=== PATIENT | female | born 1975 | race Caucasian/White ===

== ENCOUNTER 2021-06-07 11:35 | Emergency (ER) | payer OTHER ==
[~2021-06-07] VITALS: Ht 157.5 cm; Wt 63.5 kg
[2021-06-07] MEDS ORDERED: NEURONTIN800 MG PO (11:51)
[2021-06-07] MEDS ORDERED: CLONAZEPAM2 M1 PO (11:52)
[2021-06-07] MEDS ORDERED: SULINDAC150 MG PO (11:52)
[2021-06-07] MEDS ORDERED: [UNRECOGNIZED DRUG - OTHER] (11:53)
[2021-06-07] MEDS ORDERED: ZITHROMAX500 MG PO (14:37)
== END 2021-06-07 14:43 | disposition home or self-care (01) ==
LOC: ER 11:35
DX: B34.9 Viral infection, unspecified (principal); Z20.822 Contact with and (suspected) exposure to COVID-19

== ENCOUNTER 2021-10-17 16:10 | Emergency (ER) | payer OTHER ==
[~2021-10-17] VITALS: Ht 157.5 cm; Wt 88.5 kg
[~2021-10-17 16:10] MED LIST: CLONAZEPAM2 M1 PO; NEURONTIN800 MG PO; SULINDAC150 MG PO; ZITHROMAX500 MG PO; [UNRECOGNIZED DRUG - OTHER]
[2021-10-17] MEDS ORDERED: RESTORIL30 M1 PO (16:37)
[2021-10-17] MEDS ORDERED: BENZONATATE200 M1 PO (19:34)
[2021-10-17] MEDS ORDERED: ZITHROMAX500 MG PO (19:37)
== END 2021-10-17 19:51 | disposition home or self-care (01) ==
LOC: ER 16:10
DX: B34.9 Viral infection, unspecified (principal); Z20.822 Contact with and (suspected) exposure to COVID-19

== ENCOUNTER 2021-10-19 19:51 | Emergency (ER) | payer OTHER ==
[~2021-10-19] VITALS: Ht 157.5 cm; Wt 88.5 kg
[~2021-10-19 19:51] MED LIST changes: +BENZONATATE200 M1 PO; +RESTORIL30 M1 PO
== END 2021-10-19 23:34 | disposition home or self-care (01) ==
LOC: ER 19:51
DX: U07.1 COVID-19 (principal); J45.909 Unspecified asthma, uncomplicated

== ENCOUNTER 2021-10-23 09:10 | Outpatient (CLI) | payer OTHER | END 2021-10-23 10:03 | disposition home or self-care (01) | LOC: ASH CLINIC 09:10 | PROVIDERS: ATTEND General Practice | DX: U07.1 COVID-19 (principal) ==

== ENCOUNTER 2022-09-06 15:25 | Emergency (ER) | payer OTHER ==
[~2022-09-06] VITALS: Ht 162.6 cm; Wt 75.7 kg
== END 2022-09-06 18:06 | disposition home or self-care (01) ==
LOC: ER 15:25
DX: R53.81 Other malaise (principal); J02.9 Acute pharyngitis, unspecified; J10.1 Influenza due to other identified influenza virus with other respiratory manifestations; R51.9 Headache, unspecified

== ENCOUNTER 2023-03-24 19:10 | Emergency (ER) | payer OTHER ==
[~2023-03-24] VITALS: Ht 162.6 cm
[2023-03-24 20:50] LABS: HEMATOCRIT 40.6 % (36.0-45.00); HEMOGLOBIN 13.6 g/dL (12.0-15.00); MEAN CELL VOLUME 91.6 fL (80.00-100.00); MEAN CORPUSCULAR HEMOGLOBIN 30.6 pg (27.00-32.0); MEAN CORPUSCULAR HGB CONC 33.4 g/dl (32.0-36.0); PLATELET COUNT 229 K/uL (150-450); RED BLOOD COUNT 4.44 M/uL (4.00-6.00); RED CELL DISTRIBUTION WIDTH 13.1 % (11.5-14.5)
[2023-03-24 21:03] LABS: CALCIUM 9.4 mg/dL (8.5-10.1); CREATININE SERUM 0.68 mg/dL (0.55-1.02); GFR 93.57; POTASSIUM 3.79 mEq/L (3.5-5.1)
== END 2023-03-24 22:23 | disposition home or self-care (01) ==
LOC: ER 19:10
PROVIDERS: General Practice
DX: B34.9 Viral infection, unspecified (principal); Z20.822 Contact with and (suspected) exposure to COVID-19

== ENCOUNTER 2024-09-03 10:04 | Emergency (ER) | payer OTHER ==
[~2024-09-03] VITALS: Ht 157.5 cm; Wt 82.1 kg
[2024-09-03] MEDS ORDERED: BUTALB/ACETAMINOPHEN/CAFFEINE 1 TAB TABLET PO ONE ×2 (12:15→13:16)
[2024-09-03] MEDS ORDERED: VANCOMYCIN HCL 1,000 MG VIAL IV ONE (12:15)
[2024-09-03] MEDS ORDERED: FAMOtidine 10 MG/ML (4ML VIAL) IV ONE (12:15)
[2024-09-03] MEDS ORDERED: KETOROLAC TROMETHAMINE 30 MG VIAL IV ONE (12:15)
[2024-09-03] MEDS ORDERED: ONDANSETRON HCL 2 MG/ML VIAL IV ONE (12:15)
[2024-09-03] MEDS ORDERED: ONDANSETRON HCL 2 MG/ML VIAL ONE (13:16)
[2024-09-03] MEDS ORDERED: KETOROLAC TROMETHAMINE 30 MG VIAL ONE (13:16)
[2024-09-03] MEDS ORDERED: FAMOTIDINE/PF 20 MG/2 ML VIAL ONE (13:17)
[2024-09-03] MEDS ORDERED: VANCOMYCIN HCL 1,000 MG VIAL ONE (13:17)
[2024-09-03 13:58] LABS: HEMATOCRIT 42.7 % (36.0-45.00); HEMOGLOBIN 14.2 g/dL (12.0-15.00); MEAN CELL VOLUME 91.7 fL (80.00-100.00); MEAN CORPUSCULAR HEMOGLOBIN 30.4 pg (27.00-32.0); MEAN CORPUSCULAR HGB CONC 33.2 g/dl (32.0-36.0); PLATELET COUNT 256 K/uL (150-450); RED BLOOD COUNT 4.66 M/uL (4.00-6.00)
[2024-09-03 14:00] LABS: ERYTHROCYTE SEDIMENTATION RATE 25 mm/hr
[2024-09-03 14:16] LABS: INR 1.03; PARTIAL THROMBOPLASTIN TIME 28.4 SECONDS (22.0-34.0); PROTHROMBIN TIME 11.2 SECONDS (9.0-11.5)
[2024-09-03] MEDS ORDERED: NEURONTIN300 MG PO (15:52)
[2024-09-03 16:08] LABS: ALBUMIN 4.1 gm/dL (3.4-5.0); BILIRUBIN TOTAL 0.43 mg/dL (0.3-1.2); CALCIUM 9.6 mg/dL (8.5-10.1); CREATININE SERUM 0.64 mg/dL (0.55-1.02); GFR 99.47; POTASSIUM 4.08 mEq/L (3.5-5.1); TOTAL PROTEIN 8.1 gm/dL (6.4-8.2)
== END 2024-09-03 16:39 | disposition home or self-care (01) ==
LOC: ER 10:05
PROVIDERS: Emergency Medicine; General Practice
DX: G50.0 Trigeminal neuralgia (principal)

== ENCOUNTER → 2025-05-16 | Emergency (ER) | payer OTHER ==
[~2025-05-16] VITALS: Ht 157.5 cm; Wt 86.2 kg
[~2025-05-16] MED LIST changes: +0.9 % SODIUM CHLORIDE 1,000 ML IV SCH; +BACLOFEN20 MG; +FAMOTIDINE/PF 20 MG/2 ML VIAL ONE; +FAMOtidine 10 MG/ML (4ML VIAL) IV PUSH ONE; +KETOROLAC TROMETHAMINE 30 MG VIAL IV ONE; +KETOROLAC TROMETHAMINE 30 MG VIAL ONE; +NEURONTIN300 MG PO; +NORFLEX100MG PO; +ONDANSETRON HCL 2 MG/ML VIAL IV ONE; +ONDANSETRON HCL 2 MG/ML VIAL ONE; +ORPHENADRINE CITRATE 30 MG/ML AMPUL IM ONE; +ORPHENADRINE CITRATE 30 MG/ML AMPUL ONE; +TEGRETOL200 MG
[2025-05-16 18:05] LABS: BASO % 0.4 % (0.1-1.2); EOS # 0.24 (0.04-0.54); EOS % 2.9 % (0.7-7.0); LYMPH # 3.12 (1.18-3.74); LYMPH % 38.1 % (19.3-53.1); MEAN PLATELET VOLUME 12.70 fl (9.4-12.4); MONO # 0.64 (0.24-0.82); MONO % 7.8 % (4.7-12.5); NEUT # 4.13 (1.56-6.13); NEUT % 50.4 % (34.0-71.1); RED CELL DISTRIBUTION WIDTH 12.2 % (11.6-14.4)
[2025-05-16 18:15] LABS: URINE APPEARANCE Clear; URINE BILIRRUBIN Negative (NEGATIVE); URINE BLOOD Negative; URINE COLOR Yellow; URINE GLUCOSE Negative (NEGATIVE); URINE KETONE Negative (NEGATIVE); URINE LEUKOCYTE Negative; URINE NITRATE Negative; URINE PROTEIN Negative (NEGATIVE); URINE UROBILINOGEN 0.2 E.U./dl
[2025-05-16 18:18] LABS: URINE BACTERIA 82.2 uL (0.0-1933); URINE EPITHELIAL CELLS 12.5 uL (0.0-38.8)
[2025-05-16 18:23] LABS: URINE CAST 0.00 uL (0.0-1.40); URINE RBC 0.7 uL (0.0-20.8); URINE WBC 0.7 uL (0.0-23.2)
[2025-05-16 18:39] LABS: ALT/SGPT 30.0 U/L (12-78); AST/SGOT 18.0 U/L (15-37); BILIRUBIN TOTAL 0.28 mg/dL (0.3-1.2); BUN CREA RATIO 14.0 (7.0-25.0); CREATININE SERUM 0.71 mg/dL (0.55-1.02); GFR 88.24; GLOBULINA 4.5 G/DL (2.4-3.5); GLUCOSE FASTING 92.0 mg/dL (65-100); OSMOLALITY SERUM 284.0 MOSM/KG (275-295)
== END | disposition home or self-care (01) ==
LOC: ER 15:00
PROVIDERS: General Practice
DX: R10.20 Pelvic and perineal pain unspecified side (principal); R10.31 Right lower quadrant pain; M54.59 Other low back pain; R11.0 Nausea; A08.8 Other specified intestinal infections
CPT/HCPCS: 36415; 74177; Q9965